=== PATIENT | female | born 1980 | race Caucasian/White ===

== ENCOUNTER 2016-12-16 09:57 | Day surgery (SDC) | payer OTHER ==
[2016-12-16 10:15] VITALS: BMI 24.7
[2016-12-16] MEDS ORDERED: Propofol 10 mg/ml Inj (20 ML) ONE (11:32)
[2016-12-16] MEDS ORDERED: Lactated Ringer's 500 ML IV SCH (11:45)
[2016-12-16 13:39] VITALS: TEMP 97.5
[2016-12-16 14:07] VITALS: BP 102/59; PULSE 56; RESP 14; O2SAT 98
== END 2016-12-16 13:18 | disposition home or self-care (01) ==
LOC: C.ENDO 09:57
PROVIDERS: ATTEND Internal Medicine
DX: F45.8 Other somatoform disorders (principal); K21.9 Gastro-esophageal reflux disease without esophagitis; R13.10 Dysphagia, unspecified; K44.9 Diaphragmatic hernia without obstruction or gangrene; K29.70 Gastritis, unspecified, without bleeding
CPT/HCPCS: 43239; 84703; 88305; 88313; 88342; J2704; J7120

== ENCOUNTER 2018-05-12 06:54 | Day surgery (SDC) | payer OTHER ==
[2018-05-12 07:24] VITALS: BMI 25.2
--- NOTE | 2018-05-12 07:59 | CP.SDSHP ---
Same Day Surgery H & P - History Proposed Procedure: dysphagia. gerd - Previous Medical/Surgical History Misc: Other (gerd, gastritis) - Allergies Allergies: Allergies coffee (Coffea arabica) Allergy (Verified 05/12/18 07:23) SHORTNESS OF BREATH TEA Allergy (Uncoded 05/12/18 07:23) SHORTNESS OF BREATH - Physical Exam Vital Signs: Vital Signs 05/12/18 07:40 Temperature 98.6 F Pulse Rate 78 Respiratory 16 Rate Blood Pressure 131/68 O2 Sat by Pulse 99 Oximetry Mental Status: Alert & Oriented x3 Neuro: WNL Heart: WNL Lungs: WNL GI: WNL - Impression Impression: dysphagia\. gerd Pt. Evaluated Today:Candidate for Anesthesia & Procedure: Yes - Date & Time Date: 05/12/18 Time: 07:58 Short Stay Discharge - Short Stay Discharge Admitting Diagnosis/Reason for Visit: DYSPHAGIA, HEARTBURN, GERD Disposition: HOME/ ROUTINE
[2018-05-12] MEDS ORDERED: Propofol 10 mg/ml Inj (20 ML) ONE (08:17)
[2018-05-12] MEDS ORDERED: Pantoprazole 40 mg EC Tab PO ONE (09:00)
[2018-05-12 10:38] VITALS: RESP 20; TEMP 98.9
[2018-05-12 10:50] VITALS: BP 110/62; PULSE 75; O2SAT 99
== END 2018-05-12 10:30 | disposition home or self-care (01) ==
LOC: C.ENDO 06:54
PROVIDERS: ATTEND Internal Medicine Gastroenterology
DX: K21.0 Gastro-esophageal reflux disease with esophagitis (principal); K44.9 Diaphragmatic hernia without obstruction or gangrene; K29.50 Unspecified chronic gastritis without bleeding
CPT/HCPCS: 43239; 84703; 88305; J2001; J2704

== ENCOUNTER 2018-06-20 14:10 | Emergency (ER) | payer OTHER ==
[2018-06-20 14:10] VITALS: BMI 25.2
[2018-06-20 14:58] LABS: BASO # 0.1 K/uL (0.0-0.2); BASO % 0.9 % (0.0-2.0); EOS % 0.2 % (0.0-4.0); HEMOGLOBIN 12.8 g/dL (11.0-16.0); LYMPH # 1.1 K/uL (1.0-4.3); LYMPH % 10.8 % (20.0-40.0); MEAN CELL VOLUME 90.6 fL (81.0-99.0); MEAN CORPUSCULAR HEMOGLOBIN 31.2 pg (27.0-31.0); MEAN CORPUSCULAR HGB CONC 34.5 g/dL (33.0-37.0); MEAN PLATELET VOLUME 9.4 fL (7.2-11.7); MONO # 0.6 K/uL (0.0-0.8); MONO % 6.1 % (0.0-10.0); NEUT # 8.3 K/uL (1.8-7.0); NRBC % 0.1 % (0.0-2.0); RBC 4.1 Mil/uL (3.80-5.20); RED CELL DISTRIBUTION WIDTH 13.2 % (11.5-14.5); WHITE BLOOD COUNT 10.1 K/uL (4.8-10.8)
--- NOTE | 2018-06-20 15:09 | C.PDOC ---
History Of Present Illness 37-year-old female presents to the emergency department with complaints of palpitations which started this morning at approx 9:30 AM - began while patient was eating breakfast. Contrary to triage note, patient denies being in any arg ument or stressful situation when the symptoms started. Patient denies chest pain, but reports mild associated shortness of breath. Of note, patient has a history of thyroid nodules and GERD. She denies any other medical issues. Patient reports that she is currently breast-feeding, gave nine months ago. Time Seen by Provider: 06/20/18 14:24 Chief Complaint (Nursing): Palpitations History Per: Patient History/Exam Limitations: no limitations Onset/Duration Of Symptoms: Hrs (6) Current Symptoms Are (Timing): Still Present Severity: Mild Associated Symptoms: Other (palpitations, shortness of breath). denies: Chest Pain Past Medical History Reviewed: Historical Data, Nursing Documentation, Vital Signs Vital Signs: Last Vital Signs Temp 98.7 F 06/20/18 14:31 Pulse 92 H 06/20/18 14:31 Resp 14 06/20/18 14:31 BP 121/69 06/20/18 14:31 Pulse Ox 99 06/20/18 14:31 - Medical History PMH: GERD, Migraine Surgical History: Endoscopy Family History: States: No Known Family Hx - Social History Hx Tobacco Use: No Hx Alcohol Use: No Hx Substance Use: No - Immunization History Hx Tetanus Toxoid Vaccination: No Hx Influenza Vaccination: No Hx Pneumococcal Vaccination: No Review Of Systems Constitutional: Negative for: Fever, Chills Cardiovascular: Positive for: Palpitations. Negative for: Chest Pain Respiratory: Positive for: Shortness of Breath. Negative for: Cough Gastrointestinal: Negative for: Nausea, Vomiting, Abdominal Pain Skin: Negative for: Rash Neurological: Negative for: Weakness, Numbness, Headache, Dizziness Physical Exam - Physical Exam Appears: Well, Non-toxic, No Acute Distress, Other (speaking in full sentences) Skin: Normal Color, Warm, Dry, No Rash Head: Normacephalic Eye(s): bilateral: Normal Inspection Oral Mucosa: Moist Neck: Supple, Other ((+) multiple thyroid nodules ) Cardiovascular: Rhythm Regular Respiratory: Normal Breath Sounds, No Rales, No Rhonchi, No Wheezing Gastrointestinal/Abdominal: Normal Exam, Bowel Sounds, Soft, No Tenderness Extremity: Normal ROM Neurological/Psych: Oriented x3 ED Course And Treatment - Laboratory Results Result Diagrams: 06/20/18 14:55 06/20/18 14:55 ECG: Interpreted By Me, Viewed By Me Interpretation Of ECG: Normal sinus rhythm at 75bpm, normal axis, no acute ST/T wave changes. O2 Sat by Pulse Oximetry: 99 (RA) Pulse Ox Interpretation: Normal - Radiology CXR: Interpreted by Me, Viewed By Me CXR Interpretation: Yes: No Acute Disease. No: Infiltrates Progress Note: Blood work, EKG, CXR ordered and reviewed. Reevaluation Time: 16:20 Reassessment Condition: Improved (On reassessment, patient is resting comfortably and is currently asymptomatic. Blood work, EKG, CXR unremarkable execept for mildly decreased TSH. Patient made aware of findings and given copies of all results. She was instructed to follow up with cardiolgy withi 1 week. She understands she should return to ED if symptoms worsen.) Disposition Counseled Patient/Family Regarding: Studies Performed, Diagnosis, Need For Fol lowup - Disposition Referrals: Melissa Berry MD [Staff Provider] - Reese Dawkins MD [Staff Provider] - Disposition: HOME/ ROUTINE Disposition Time: 16:20 Condition: STABLE Additional Instructions: FOLLOW UP WITH YOUR DOCTOR IN 1-2 DAYS, AND WITH CARDIOLOGY WITHIN 1 WEEK IF PALPITATIONS PERSIST RETURN TO ER IF SYMPTOMS WORSEN Instructions: Palpitations (DC) Forms: [facility] (Nauruan) Print Language: CITIZEN OF [place] AND [place] - Clinical Impression Clinical Impression: Palpitations, Low TSH level - Scribe Statement The provider has reviewed the documentation as recorded by the Scribe (Yoandy Guzmanqvi) Provider Attestation: All medical record entries made by the Scribe were at my direction and personally dictated by me. I have reviewed the chart and agree that the record accurately reflects my personal performance of the history, physical exam, medical decision making, and the department course for this patient. I have also personally directed, reviewed, and agree with the discharge instructions and disposition.
[2018-06-20 15:11] LABS: ALB/GLOB RATIO 1.5 (1.0-2.1); ALBUMIN 4.6 g/dL (3.5-5.0); BLOOD UREA NITROGEN 12 mg/dL (7-17); CALCIUM 9.5 mg/dl (8.6-10.4); GFR NON-AFRICAN AMERICAN > 60
[2018-06-20 15:12] LABS: ALT/SGPT < 6 U/L (9-52); AST/SGOT 30 U/L (14-36)
[2018-06-20 15:22] LABS: CK-MB 0.47 ng/mL (0.0-3.38)
[2018-06-20 15:26] LABS: SQUAMOUS EPITHIAL < 1 /hpf (0-5); URINE BILIRUBIN NEGATIVE (NEGATIVE); URINE BLOOD 1+ (NEGATIVE); URINE CLARITY Clear (Clear); URINE COLOR Colorless (YELLOW); URINE GLUCOSE (UA) NORMAL (Normal); URINE LEUKOCYTE ESTERASE NEG Leu/uL (Negative); URINE PROTEIN NEGATIVE (NEGATIVE); URINE UROBILINOGEN NORMAL mg/dL (0.2-1.0)
--- NOTE | 2018-06-20 15:32 | RAD ---
Date of service: 06/20/2018 PROCEDURE: CHEST RADIOGRAPH, 1 VIEW HISTORY: SOB, palpitations - please shield thyroid COMPARISON: None available. FINDINGS: LUNGS: The lung apices are partially obscured by the thyroid shield. The lungs are well inflated and clear. PLEURA: No pneumothorax or pleural effusion. CARDIOVASCULAR: The heart is normal in size. No aortic atherosclerotic calcifications present. OSSEOUS STRUCTURES: Within normal limits for the patient's age. VISUALIZED UPPER ABDOMEN: Normal. OTHER FINDINGS: None. IMPRESSION: No active pulmonary disease.
[2018-06-20 15:40] LABS: BARBITURATES, UR NEGATIVE (NEGATIVE); BENZODIAZEPINES, UR NEGATIVE (NEGATIVE); OPIATES, UR NEGATIVE (NEGATIVE); PHENCYCLIDINE, UR NEGATIVE (NEGATIVE)
[2018-06-20 16:44] VITALS: BP 120/88; PULSE 82; RESP 18; TEMP 98.5
--- NOTE | 2018-06-22 10:03 | CARD ---
APPROVED REPORT Date of service: 06/20/2018 EKG Measurement Heart [id number] <Conclusion> Normal sinus rhythm Normal ECG
[2018-06-23 08:00] VITALS: O2SAT 99
== END 2018-06-20 16:44 | disposition home or self-care (01) ==
LOC: C.ER 14:10
DX: R00.2 Palpitations (principal); R94.6 Abnormal results of thyroid function studies